=== PATIENT | male | born 2000 | race Caucasian/White ===

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

== ENCOUNTER 2018-05-12 08:14 | Emergency (ER) | payer MEDICAID, OTHER ==
[2018-05-12 08:21] VITALS: BP 136/88
[2018-05-12] MEDS ORDERED: Albuterol/Ipratropium 3.0-0.5 MG/3 ML Neb Soln NEB ONE (08:22)
[2018-05-12] MEDS ORDERED: predniSONE 20 MG Tab PO STA (08:23)
--- NOTE | 2018-05-12 08:38 | EDM.PDOC ---
ED HPI GENERAL MEDICAL PROBLEM - General Chief Complaint: Asthma Stated Complaint: ASTHMA ATTACK Time Seen by Provider: 05/12/18 08:21 Source of Information: Reports: Patient, RN Notes Reviewed History Limitations: Reports: No Limitations - History of Present Illness INITIAL COMMENTS - FREE TEXT/NARRATIVE: The patient has a history of presumptive asthma since infancy, although he has never been evaluated by a Infrastructure Developer, and has never undergone pulmonary function test. He states that he gets asthma attacks about every other day, including this morning. He states that he woke with an asthma attack, including dyspnea, wheezes, and a dry cough. He has run out of his albuterol MDI. The patient denies recent fever, chills, nausea, vomiting, constipation, diarrhea, or urinary symptoms. The patient does not have a space chamber. He has a peak flow meter, but does not use it, at all. The patient uses only albuterol for his asthma - no other medications. The patient states that he has a PCP, but he does not recall their name. - Related Data Allergies Allergy/AdvReac Type Severity Reaction Status Date / Time No Known Allergies Allergy Verified 05/12/18 08:17 Home Meds: Home Meds Albuterol Sulfate [Proair Hfa] 1 - 2 puff IH Q4H PRN #1 mdi 12/18/15 [Rx] Albuterol [Ventolin HFA] 1 - 2 puff INH Q4H PRN #1 mdi 05/12/18 [Rx] predniSONE [Prednisone] 1 tab PO QAM #3 tablet 05/12/18 [Rx] Past Medical History Respiratory History: Reports: Asthma (suspected since infancy, not confirmed) Psychiatric History: Reports: ADHD (untreated) - Past Surgical History HEENT Surgical History: Reports: Adenoidectomy, Myringotomy w Tube(s) (bilateral ), Oral Surgery ([place] teeth extraction), Tonsillectomy Social & Family History - Family History Family Medical History: Noncontributory - Tobacco Use Smoking Status *Q: Current Every Day Smoker Years of Tobacco use: 7 Packs/Tins Daily: 0.5 Packs/Tins Daily Comment: Down from 1 ppd - Alcohol Use Alcohol Use History: Yes Days Per Week of Alcohol Use: 4 Number of Drinks Per Day: 7 Total Drinks Per Week: 28 Total Drinks Per Week Comment: Drinks to excess 3 to 4 days a week - Recreational Drug Use Recreational Drug Use: Yes Drug Use in Last 12 Months: Yes Recreational Drug Type: Reports: Marijuana/Hashish (smokes a few times a month) - Living Situation & Occupation Living situation: Reports: Single, Alone 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 ED EXAM, GENERAL - Physical Exam Exam: See Below Exam Limited By: No Limitations General Appearance: Alert, WD/WN, No Apparent Distress Eye Exam: Bilateral Eye: EOMI, Normal Inspection Ears: Normal External Exam, Hearing Grossly Normal Nose: Normal Inspection Throat/Mouth: Normal Inspection, Normal Lips, Normal Voice, No Airway Compromise Head: Atraumatic, Normocephalic Neck: Normal Inspection, Full Range of Motion Respiratory/Chest: No Respiratory Distress, No Accessory Muscle Use, Wheezing ( diffuse, expiratory), Prolonged Expiration (mild). No: Decreased Breath Sounds , Crackles, Rhonchi Cardiovascular: Normal Peripheral Pulses, Regular Rate, Rhythm, No Edema, No Gallop, No JVD, No Murmur, No Rub Peripheral Pulses: 4+: Radial (L), Radial (R) GI/Abdominal: Normal Bowel Sounds, Soft, Non-Tender, No Organomegaly, No Distention, No Abnormal Bruit, No Mass (Male) Exam: Deferred Rectal (Males) Exam: Deferred Back Exam: Normal Inspection, Full Range of Motion, NT Extremities: Normal Inspection, Normal Range of Motion, No Pedal Edema, Normal Capillary Refill Neurological: Alert, Oriented, Normal Cognition, No Motor/Sensory Deficits Psychiatric: Normal Affect Skin Exam: Warm, Dry, Intact, Normal Color, No Rash Course - Vital Signs Last Recorded V/S: Last Vital Signs Temp 36.6 C 05/12/18 08:18 Pulse 94 05/12/18 08:18 Resp 18 05/12/18 08:18 BP 136/88 05/12/18 08:18 Pulse Ox 100 05/12/18 08:23 - Orders/Labs/Meds Orders: Active Orders 24 hr Category Date Time Status RT Aerosol Therapy [RC] ASDIRECTED Care 05/12/18 08:23 Active Meds: Medications Discontinued Medications Generic Name Dose Route Start Last Admin Trade Name Freq PRN Reason Stop Dose Admin Albuterol/Ipratropium 3 ml 05/12/18 08:22 05/12/18 08:31 Duoneb 3.0-0.5 Mg/3 Ml NEB 05/12/18 08:23 3 ml ONETIME ONE Administration Prednisone 60 mg 05/12/18 08:23 05/12/18 08:38 Prednisone PO 05/12/18 08:24 60 mg ONETIME STA Administration - Re-Assessments/Exams Free Text/Narrative Re-Assessment/Exam: 05/12/18 09:31 Following a DuoNeb and 60 mg of oral prednisone, the patient's lungs are now clear to auscultation bilaterally. I will discharge him home. He was given a space chamber by the respiratory therapist, along with instructions on how to use it. As above, the patient states that he has a peak flow meter at home, and I recommended that he been using it twice a week, regularly. I will send a prescription for an albuterol MDI and prednisone 20 mg x 3 days. Lastly, I strongly encouraged the patient to consider quitting smoking. Departure - Departure Time of Disposition: 09:33 Disposition: Home, Self-Care 01 Condition: Good Clinical Impression: Asthma exacerbation, Smoker - Discharge Information *PRESCRIPTION DRUG MONITORING PROGRAM REVIEWED*: Not Applicable *COPY OF PRESCRIPTION DRUG MONITORING REPORT IN PATIENT MARIEL: Not Applicable Prescriptions: Albuterol [Ventolin HFA] 1 - 2 puff INH Q4H PRN #1 mdi PRN Reason: Shortness Of Breath predniSONE [Prednisone] 1 tab PO QAM #3 tablet Instructions: Asthma, Adult Referrals: PCP,Unknown [Primary Care Provider] - Forms: ED Department Discharge, ED Return to Work/School Form Additional Instructions: You were seen in the emergency room for an asthma exacerbation. You were treated with a DuoNeb and oral prednisone, with significant improvement in your symptoms. Prescriptions for an albuterol MDI and oral prednisone have been sent to the [facility], [address], located just south and across the [address] from [facility]. You have been given a space chamber. Take 1-2 inhalations of albuterol as needed for symptoms of shortness of breath , with wheezing, with or without a cough. Always use the space chamber whenever you use your meter dose inhaler. Take one tablet of prednisone every morning, with food, starting tomorrow morning, 05/13/2018, as prescribed. As discussed, we recommend that you use your peak flow meter twice a week. If you are feeling fine but your peak flow is in the yellow or red zone, contact your primary care provider, as this indicates an impending asthma exacerbation. If you are feeling short of breath and your peak flow is in the yellow or red zone, use your albuterol as instructed. You may use the albuterol as often as necessary, however, if you require it or often than every 4 hours, you need to be seen by a doctor. If you are feeling short of breath, but your peak flow is in the green zone, do not use your albuterol, as this indicates that your shortness of breath is not due to an asthma exacerbation. As discussed, we strongly recommend that you consider quitting smoking. If any other problems, please do not hesitate to return to the ER. - My Orders Last 24 Hours: My Active Orders 05/12/18 08:23 RT Aerosol Therapy [RC] ASDIRECTED - Assessment/Plan Last 24 Hours: My Active Orders 05/12/18 08:23 RT Aerosol Therapy [RC] ASDIRECTED
== END 2018-05-12 10:15 | disposition home or self-care (01) ==
LOC: JD.ED 08:14
DX: J45.901 Unspecified asthma with (acute) exacerbation (principal); F17.210 Nicotine dependence, cigarettes, uncomplicated
CPT/HCPCS: 94640; 99285; A9270; 99284; J7620-GY

== ENCOUNTER 2018-09-18 10:33 | Emergency (ER) | payer MEDICAID ==
[2018-09-18 10:47] VITALS: BP 132/92
--- NOTE | 2018-09-18 11:45 | EDM.PDOCBH ---
ED HPI GENERAL MEDICAL PROBLEM - General Chief Complaint: Behavioral/Psych Stated Complaint: SUICIDAL IDEATIONS Time Seen by Provider: 09/18/18 10:55 Source of Information: Reports: Patient, RN Notes Reviewed - History of Present Illness INITIAL COMMENTS - FREE TEXT/NARRATIVE: 17 year old male has been referred here from [facility] for mental health concerns. He has hx of anxiety, depression, has been on zoloft in the past but quite refilling his prescription about a yr ago. He has a lot of current stress. He has a 3 1/2 month old son but he and the boy's mother are . She is currently in [place]. He has lost his job so there is financial stress as well. He admitted at the clinic that he has had suicidal thoughts but when asked about that he states they are transient, "that thought will cross his mind but than he gets rid of it". He does not want to . He does not have a current plan or intent to kill himself or harm any one else. He has hx of asthma. He is not currently drinking alcohol. He does smoke marijuana to help him relax, feel better. - Related Data Allergies Allergy/AdvReac Type Severity Reaction Status Date / Time No Known Allergies Allergy Verified 09/18/18 10:41 Home Meds: Home Meds Albuterol Sulfate [Proair Hfa] 1 - 2 puff IH Q4H PRN #1 mdi 12/18/15 [Rx] Past Medical History HEENT History: Reports: Impaired Vision Respiratory History: Reports: Asthma Neurological History: Reports: Migraines Psychiatric History: Reports: ADHD, Depression - Past Surgical History HEENT Surgical History: Reports: Adenoidectomy, Myringotomy w Tube(s), Oral Surgery, Tonsillectomy Social & Family History - Family History Family Medical History: Noncontributory - Tobacco Use Smoking Status *Q: Current Every Day Smoker Years of Tobacco use: 7 Packs/Tins Daily: 1 - Caffeine Use Caffeine Use: Reports: None - Recreational Drug Use Recreational Drug Use: No - Living Situation & Occupation Living situation: Reports: Single, Alone 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 GENERAL - Review of Systems Review Of Systems: See Below Constitutional: Denies: Fever, Chills HEENT: Denies: Sinus Problem, Throat Pain Respiratory: Denies: Shortness of Breath Cardiovascular: Denies: Chest Pain GI/Abdominal: Denies: Abdominal Pain, Nausea, Vomiting Musculoskeletal: Reports: No Symptoms Skin: Reports: No Symptoms Neurological: Reports: No Symptoms ED EXAM, BEHAVIORAL HEALTH - Physical Exam Exam: See Below General Appearance: Alert, No Apparent Distress Eye Exam: Bilateral Eye: PERRL Throat/Mouth: Normal Inspection, Normal Oropharynx Head: Atraumatic Neck: Supple, Full Range of Motion Respiratory/Chest: No Respiratory Distress, Lungs Clear, Normal Breath Sounds Cardiovascular: Regular Rate, Rhythm GI/Abdominal: Soft, Non-Tender Extremities: Normal Inspection, Normal Range of Motion Neurological: Alert, Normal Mood/Affect, No Motor/Sensory Deficits Psychiatric: Alert, Normal Cognition, Depressed Mood (mild, he does make good eye contact, answers all questions appropriately). No: Suicidal Plan, Suicidal Thoughts Skin Exam: Warm, Dry, Normal color COURSE, BEHAVIORAL HEALTH COMP - Course Vital Signs: Last Vital Signs Temp 97.0 F 09/18/18 10:46 Pulse 64 09/18/18 10:46 Resp 14 09/18/18 10:46 BP 132/92 H 09/18/18 10:46 Pulse Ox 98 09/18/18 10:46 Orders, Labs, Meds: Laboratory Tests 09/18/18 09/18/18 09/18/18 Range/Units 11:20 11:20 11:40 WBC 7.42 (4.23-9.07) K/mm3 RBC 4.93 (4.63-6.08) M/mm3 Hgb 15.1 (13.7-17.5) gm/L Hct 43.8 (40.1-51.0) % MCV 88.8 (79.0-92.2) fl MCH 30.6 (25.7-32.2) pg MCHC 34.5 (32.2-35.5) g/dl RDW Std Deviation 38.8 (35.1-43.9) fL Plt Count 249 (163-337) K/mm3 MPV 9.5 (9.4-12.3) fl Neut % (Auto) 46.8 (34.0-67.9) % Lymph % (Auto) 37.9 (21.8-53.1) % Sabine % (Auto) 11.2 (5.3-12.2) % Eos % (Auto) 3.9 (0.8-7.0) Baso % (Auto) 0.1 (0.1-1.2) % Neut # (Auto) 3.47 (1.78-5.38) K/mm3 Lymph # (Auto) 2.81 (1.32-3.57) K/mm3 [place] # (Auto) 0.83 H (0.30-0.82) K/mm3 Eos # (Auto) 0.29 (0.04-0.54) K/mm3 Baso # (Auto) 0.01 (0.01-0.08) K/mm3 Sodium 143 (136-145) mEq/L Potassium 3.8 (3.5-5.1) mEq/L Chloride 107 (98-107) mEq/L Carbon Dioxide 26 (21-32) mEq/L Anion Gap 13.8 (5-15) BUN 14 (7-18) mg/dL Creatinine 0.9 (0.7-1.3) mg/dL Est Cr Clr Drug Dosing 138.06 mL/min Estimated GFR (MDRD) > 60 (>60) mL/min BUN/Creatinine Ratio 15.6 (14-18) Glucose 91 (74-106) mg/dL Calcium 8.8 (8.5-10.1) mg/dL Total Bilirubin 0.2 (0.2-1.0) mg/dL AST 14 L (15-37) U/L ALT 21 (16-63) U/L Alkaline Phosphatase 96 (46-116) U/L Total Protein 7.3 (6.4-8.2) g/dl Albumin 4.0 (3.4-5.0) g/dl Globulin 3.3 gm/dL Albumin/Globulin Ratio 1.2 (1-2) Urine Opiates Screen Negative (MDGHME=797) Ur Buprenorphine Scrn Negative (CUTOFF=10) Ur Oxycodone Screen Negative (YEP5FE=487) Urine Methadone Screen Negative (LDX7TZ=818) Ur Propoxyphene Screen Negative (VQFLWC=458) Ur Barbiturates Screen Negative (SMVPFE=811) Ur Tricyclics Screen Negative (OCRVYF=193) Ur Phencyclidine Scrn Negative (CUTOFF=25) Ur Amphetamine Screen Negative (SFPORW=994) U Methamphetamines Scrn Negative (KKTOWC=244) U Benzodiazepines Scrn Negative (NICREY=126) U Cocaine Metab Screen Negative (OARNXJ=780) U Marijuana (THC) Screen Presumptive positive H (CUTOFF=50) Ethyl Alcohol 0.00 (0.00) gm% Re-Assessment/Re-Exam: Pt denies any suicidal intent at this time. He is looking for mental health help. Dealing with a lot of current stress, and has hx of anxiety, depression. I have called [facility]. They will see him now to get intake information and than plan to get him scheduled to see one of their counselors this afternoon. Patient is comfortable with that plan. CBC, chem. normal. Etoh neg. Drug screen pending, anticipate it will be positive for marijuana. He denies other drug usage. Departure - Departure Time of Disposition: 12:01 Disposition: DC/Tfer to Other 70 Condition: Fair Clinical Impression: Depressive disorder - Discharge Information Instructions: Major Depressive Disorder, Adult Referrals: Lkuas Louise Jr, MD [Primary Care Provider] - Forms: ED Department Discharge Additional Instructions: Go to [facility] now. They will get information from you, plan to get you an appointment to see one of their counselors this afternoon. Return to ED as needed if symptoms worsening in any way.
== END 2018-09-18 12:15 | disposition other institution (70) ==
LOC: JD.ED 10:33
DX: F32.9 Major depressive disorder, single episode, unspecified (principal); F17.210 Nicotine dependence, cigarettes, uncomplicated
CPT/HCPCS: 36415; 80053; 80306; 85025; 99285; G0480; 99282

== ENCOUNTER 2020-05-27 00:35 | Emergency (ER) | payer MEDICAID ==
[2020-05-27 00:49] VITALS: BP 137/77; PULSE 67
--- NOTE | 2020-05-27 01:29 | EDM.PDOC ---
ED HPI GENERAL MEDICAL PROBLEM - General Chief Complaint: Skin Complaint Stated Complaint: ABCESS UPPER THIGH OF LEFT LEG Time Seen by Provider: 05/27/20 01:10 Source of Information: Reports: Patient History Limitations: Reports: No Limitations - History of Present Illness INITIAL COMMENTS - FREE TEXT/NARRATIVE: Mr. Guidry is a very pleasant 19-year-old gentleman who now presents to the ED with a painful lump to his upper most left medial thigh, adjacent to the perineum, that developed approximately 4 days ago, on 05/23/2020. He states that he was seen at the walk-in clinic 2 days ago, on Sunday or Sunday, 05/24/2020 or 05/25/2020, where he was diagnosed with an abscess and prescribed a 10-day course of an antibiotic, whose name he does not recall, but that he has been taking 3 times a day. No associated fever. The patient states that his significant other just delivered their daughter, and he thought that since he was already in the hospital, he might come by the ED to get evaluated. Here in the ED, the patient is found to be hemodynamically stable, afebrile, saturating 99% on room air. Prior to 4 days ago, the patient denies having a recent fever, chills, sore throat, ear pain, nasal or sinus congestion, cough, dyspnea, chest pain, palpitations, nausea, vomiting, constipation, diarrhea, abdominal pain, urinary symptoms, recent weight gain or weight loss, recent bloody bowel movements or black bowel movements, recent joint aches, headaches, or rashes. The patient does not have a PCP. - Related Data Allergies Allergy/AdvReac Type Severity Reaction Status Date / Time No Known Allergies Allergy Verified 09/18/18 10:41 Home Meds: Home Meds Albuterol Sulfate [Proair Hfa] 1 - 2 puff IH Q4H PRN #1 mdi 12/18/15 [Rx] Past Medical History HEENT History: Reports: Impaired Vision (wears glasses) Respiratory History: Reports: Asthma (suspected, not PFT-tested) Psychiatric History: Reports: ADHD (untreated), Anxiety (untreated), Depression (untreated) - Past Surgical History HEENT Surgical History: Reports: Adenoidectomy, Myringotomy w Tube(s) (bilateral), Oral Surgery (dental extractions), Tonsillectomy Social & Family History - Family History Family Medical History: Noncontributory - Tobacco Use Tobacco Use Status *Q: Former Tobacco User Years of Tobacco use: 9 Packs/Tins Daily: 1 Month/Year Tobacco Last Used: Quit Nov 2019 - Caffeine Use Caffeine Use: Reports: None - Alcohol Use Alcohol Use History: Yes Alcohol Use Frequency: Binges - Recreational Drug Use Recreational Drug Use: Yes Drug Use in Last 12 Months: Yes Recreational Drug Type: Reports: Marijuana/Hashish (smokes 1-2x per month) - Living Situation & Occupation Living situation: Reports: Single, with Significant Other (Girldriend), with Family (Son (+ daughter)) Occupation: Unemployed ED ROS GENERAL - Review of Systems Review Of Systems: Comprehensive ROS is negative, except as noted in HPI. ED EXAM, SKIN/RASH Exam: See Below Exam Limited By: No Limitations General Appearance: Alert, WD/WN, No Apparent Distress Extremities: Other (There is an approximately 1 cm x 3 cm area of swelling to the proximal medial aspect of the patient's left thigh, adjacent to the perineum. There is mild associated erythema, and the surface of the swelling appears to be abraded. It is tender to palpation, however, it is indurated, with no suggestion of fluctuance. No significant surrounding swelling.) Course - Vital Signs Last Recorded V/S: Last Vital Signs Temp 36.9 C 05/27/20 00:46 Pulse 67 05/27/20 00:46 Resp 18 05/27/20 00:46 BP 137/77 05/27/20 00:46 Pulse Ox 99 05/27/20 00:46 - Re-Assessments/Exams Free Text/Narrative Re-Assessment/Exam: 05/27/20 01:22 As above, the patient has had a painful lump to his upper medial left thigh, by the perineum, for the past 4 days. He was seen at the walk-in clinic 2 days ago, and told that he has an abscess. He was prescribed an antibiotic, whose name he does not recall, but that he was instructed to take 3 times a day for 10 days. No recent fever. On examination, the patient has a small finger-sized painful swelling in that area, that is indurated, but not fluctuant. It is likely a nascent abscess. I explained that it is too early to try to incise and drain at this time, because it will be like a wet newspaper. If incised now, it would only bleed, without getting any significant purulent material out. I am recommending that he continue the antibiotic as prescribed, as well as apply a warm compress, which will help recruit circulation to the area. I will refer him to Dr. Stephens, with the recommendation that he contact Dr. Stephens's office in the morning, to make an appointment to be seen early this coming week. By that time, the infection should have coalesced enough to be able to be incised and drained. Departure - Departure Time of Disposition: :26 Disposition: Home, Self-Care 01 Condition: Good Clinical Impression: Infection of perineal wound - Discharge Information *PRESCRIPTION DRUG MONITORING PROGRAM REVIEWED*: Not Applicable *COPY OF PRESCRIPTION DRUG MONITORING REPORT IN PATIENT MARIEL: Not Applicable Referrals: PCP,None [Primary Care Provider] - Jim Stephens MD [Physician] - Forms: ED Department Discharge Additional Instructions: You were seen in the emergency room for continued pain of a lump located in the upper midline portion of your thigh, by your perineum. On examination, there appears to be an infection, however, the swelling is firm, not fluctuant, indicating that there is no fluid pocket ready to drain. We recommend that you continue the antibiotics that you are prescribed 2 days ago. We recommend you apply a warm compress to the area for 10 to 15 minutes, up to 5 times a day, to help increase circulation to the area. We recommend that you contact the office of the Surgeon Dr. Jim Stephens in the morning, to make an appointment to be seen early this coming week. By that time, the infection should have coalesced enough to be able to be drained. If any other problems, please do not hesitate to return to the ER. Sepsis Event Note (ED) - Evaluation Sepsis Screening Result: No Definite Risk - Focused Exam Vital Signs: Vital Signs Temp Pulse Resp BP Pulse Ox 05/27/20 00:46 36.9 C 67 18 137/77 99
== END 2020-05-27 01:41 | disposition home or self-care (01) ==
LOC: JD.ED 00:35
DX: L02.215 Cutaneous abscess of perineum (principal); Z87.891 Personal history of nicotine dependence; Z90.49 Acquired absence of other specified parts of digestive tract
CPT/HCPCS: 99283

== ENCOUNTER 2024-01-12 13:02 | Emergency (ER) | payer MEDICAID ==
[2024-01-12] MEDS: HYDROmorphone 0.5 MG/0.5 ML Syringe IVPUSH ONE (13:46)
[2024-01-12 16:31] LABS: APPEARANCE,URINE CLEAR (Clear); BILIRUBIN,URINE NEGATIVE (Negative); COLOR,URINE YELLOW (Yellow); GLUCOSE,URINE NEGATIVE (Negative); KETONES,URINE NEGATIVE (Negative); LEUKOCYTE ESTERASE,URINE NEGATIVE (Negative); NITRITE,URINE NEGATIVE (Negative); OCCULT BLOOD,URINE NEGATIVE (Negative); PH,URINE 7.5 (5.0-8.0); PROTEIN,URINE NEGATIVE (Negative); UROBILINOGEN,URINE 0.2 (0.2-1.0)
[2024-01-12 18:05] LABS: C. TRACHOMATIS BY PCR NOT DETECTED; N. GONORRHOEAE BY PCR NOT DETECTED
[2024-01-12] MEDS: Sulfamethoxazole/Trimethoprim 800-160 MG Tab PO ONE (18:27)
[2024-01-12 18:31] VITALS: BP 129/87; PULSE 76
== END 2024-01-12 18:35 | disposition home or self-care (01) ==
LOC: JD.ED 13:02
DX: N45.1 Epididymitis (principal); J45.909 Unspecified asthma, uncomplicated; F17.210 Nicotine dependence, cigarettes, uncomplicated; Z79.51 Long term (current) use of inhaled steroids; Z79.899 Other long term (current) drug therapy
CPT/HCPCS: 76870; 81003; 87491; 87591; 93975; 96374; 99284; A9270; J1170

== ENCOUNTER 2025-01-31 06:04 | Emergency (ER) | payer MEDICAID ==
[2025-01-31 06:41] LABS: BASOPHILS PERCENT AUTO 0.5 % (0.0-1.0); EOSINOPHILS ABSOLUTE AUTO 0.1 K/mm3 (0.0-0.4); EOSINOPHILS PERCENT AUTO 1.4 % (0.0-6.0); HEMATOCRIT 48.1 % (42.0-52.0); HEMOGLOBIN 16.9 gm/dl (14.0-18.0); IMMATURE GRAN ABSOLUTE AUTO 0.02 K/mm3 (0.00-0.05); IMMATURE GRAN PERCENT AUTO 0.3 % (0.0-0.4); LYMPHOCYTES ABSOLUTE AUTO 2.4 K/mm3 (1.0-4.8); LYMPHOCYTES PERCENT AUTO 31.4 % (24.0-44.0); MEAN CORPUSCULAR HEMOGLOBIN 31.6 pg (28.0-32.0); MEAN CORPUSCULAR HGB CONC 35.1 g/dl (32.0-36.0); MEAN CORPUSCULAR VOLUME 89.9 fl (83.0-99.0); MEAN PLATELET VOLUME 9.1 fl (9.4-12.4); MONOCYTES ABSOLUTE AUTO 0.6 K/mm3 (0.0-0.8); MONOCYTES PERCENT AUTO 7.6 % (0.0-8.0); NEUTROPHILS ABSOLUTE AUTO 4.5 K/mm3 (1.8-7.7); NEUTROPHILS PERCENT AUTO 58.8 % (41.0-71.0); PLATELET COUNT,PLT 289 K/mm3 (150-400); RED BLOOD CELL COUNT 5.35 M/mm3 (4.52-5.90); WHITE BLOOD CELL COUNT,WBC 7.61 K/mm3 (3.9-11.3)
[2025-01-31] MEDS: Iopamidol 612 MG/ML 100 ML Bottle IVPUSH ONE (06:55)
[2025-01-31] MEDS: Sodium Chloride 0.9% 10 ML Syringe FLUSH PRN ×2 (06:55→08:00)
[2025-01-31 07:02] LABS: A/G RATIO 0.9 (1-2); ALBUMIN 3.6 g/dl (3.4-5.0); ANION GAP 20.4 (5-15); BILIRUBIN TOTAL 0.2 mg/dL (0.2-1.0); BUN/CREATININE RATIO 6.7 (14-18); CALCIUM 9.6 mg/dL (8.5-10.1); CREATININE 0.9 mg/dL (0.7-1.3); EST CRCL DRUG DOSING (CG) 124.38 mL/min; POTASSIUM,K 3.4 mEq/L (3.5-5.1); PROTEIN TOTAL,TP 7.5 g/dl (6.4-8.2)
[2025-01-31] MEDS: Sodium Chloride 0.9% 1,000 ML IV ONE (07:13)
[2025-01-31] MEDS: Ketorolac 15 MG/ML SDV IVPUSH ONE (07:15)
[2025-01-31] MEDS: Pantoprazole 40 MG Vial IVPUSH ONE (08:00)
[2025-01-31] MEDS: Alum Hydrox/Mag Hydrox/Simeth 30 ML, Lidocaine 2% 15 ML PO ONE (08:00)
[2025-01-31] MEDS: Famotidine 20 MG Tab PO ONE (08:00)
[2025-01-31 10:57] VITALS: BP 122/77; PULSE 80
== END 2025-01-31 08:45 | disposition home or self-care (01) ==
LOC: JD.ED 06:04
DX: K29.20 Alcoholic gastritis without bleeding (principal); J45.909 Unspecified asthma, uncomplicated; F17.210 Nicotine dependence, cigarettes, uncomplicated; Z79.51 Long term (current) use of inhaled steroids; Z79.899 Other long term (current) drug therapy; Z86.16 Personal history of COVID-19
CPT/HCPCS: 36415; 74177; 80053; 83690; 83735; 85025; 96361; 96374; 96375; 99285; A9270; J1885; J2470; J7030; Q9967